=== PATIENT | female | born 1990 | race Caucasian/White ===

== ENCOUNTER 2019-12-12 16:48 | Emergency (ER) | payer MEDICAID, SELFPAY ==
[2019-12-12 16:55] VITALS: BP 121/62; PULSE 66; RESP 16; TEMP 36.4; O2SAT 100
--- NOTE | 2019-12-12 17:34 | ED.GENADUL_ITS ---
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 Please return to the ER following completion of the exam. Return to the ER for any acute concerns in the interim or if you develop vaginal bleeding greater than 2 pads per hour, fever, abdominal pain. Medical Decision Making 29-year-old female presents with vaginal bleeding 2 weeks following most recent menses. She is actively attempting to conceive. She called her doctor's office and was referred to the ED for an urgent evaluation. She is not had significant lower abdominal pain, no fever. She arrives with a temp of 36.4, pulse 66, blood pressure 121/62. CBC, basic chemistries, blood type obtained in addition to qualitative serum hCG. The hCG is negative, chemistries unremarkable, CBC shows white count 6.9, hematocrit 39, platelets 249. She states that her primary care physician's office requested that a vaginal ultrasound be performed to exclude ruptured cyst. I feel this is likely not clinically evident, but would consider pelvic mass within a differential diagnosis and I do feel a follow-up ultrasound is reasonable. As it is after hours, I will order an ultrasound for tomorrow and she will return to the ED for results. She understands return precautions in the interim. HPI General Mode of arrival: ambulatory . Date/Time Provider Initiated Documentation: 12/12/19 16:49 . Limitations to Documentation: no limitations . Information obtained by: patient . History of Present Illness 29 year old F presents to the emergency department with the chief complaint of Midcycle vaginal bleeding, described as moderate, and is localized to the pelvis. Patient started experiencing this day(s) (2 days) and it has been intermittent. No relieving factors improve symptom(s), No exacerbating factors reported . Patient notes denies fever/chills, loss of appetite, nausea/vomiting and shortness of breath. 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 Denies significant abdominal pain. Last menstrual period was 2 weeks ago. Vaginal bleeding last night and this morning. 6 systems reviewed and otherwise negative [facility] Social History Smoking/Tobacco Use Status: Never Drug use: Daily Substance use type: marijuana Exam Narrative Exam Narrative: GEN: awake, alert, oriented 3. Pleasant, well groomed, interactive. HEAD: Normocephalic, atraumatic ENT: Mucous membranes moist, oropharynx unremarkable, External ear exam unremarkable EYES: PERRL, EOMI NECK: Full ROM, no KENNETH, no menigismus CHEST/RESP: Nontender, clear to auscultation bilateral, no wheeze/rhonchi/rales CARDIOVASCULAR: RRR, no murmur, rub carlos a. 2+ Rad pulse bilateral ABDOMEN: Soft, nontender, no mass. +Bowel sounds Vaginal: Normal external exam, blood present in the posterior vaginal vault. No cervical motion tenderness, osseous fingertip, no adnexal tenderness or mass. EXT: Full ROM, no edema, no rash Neuro: Grossly normal neurologic exam, conversant, interactive. Psych: Speech fluent, thoughts congruent, affect normal Course Vital Signs Vital signs: Vital Signs Temperature 36.4 C L 12/12/19 16:55 Pulse 66 12/12/19 16:55 Respiratory Rate 16 12/12/19 16:55 Blood Pressure 121/62 12/12/19 16:55 Pulse Oximetry 100 12/12/19 16:55 Temperature 36.4 C L 12/12/19 16:55 Temperature Source Skin 12/12/19 16:55 Pulse 66 12/12/19 16:55 Respiratory Rate 16 12/12/19 16:55 Respiratory Effort 12/12/19 16:55 Blood Pressure 121/62 12/12/19 16:55 Blood Pressure Position Sitting 12/12/19 16:55 Pulse Oximetry 100 12/12/19 16:55 Oxygen Delivery Method Room Air 12/12/19 16:55 Oxygen Flow Rate 0 12/12/19 16:55 Pain Level 1 12/12/19 16:55
[2019-12-12 17:49] LABS: Abs Immature Grans 0.01 k/cumm (0.0-0.09); Absolute Basophil Count 0.04 k/cumm (0.0-0.2); Absolute Eosinophil Count 0.07 k/cumm (0.0-0.7); Absolute Lymphocyte Count 1.99 k/cumm (1.2-3.4); Absolute Monocyte Count 0.52 k/cumm (0.11-0.7); Absolute Neutrophil Count 4.27 k/cumm (1.2-6.7); Basophils % 0.6; HCT 39.2 % (36.0-46.0); HGB 12.9 g/dL (12.0-15.5); Immature Grans % 0.1 %; Lymphocytes % 28.8; Mean Corp. HGB Concentration 32.9 g/dL (32.0-36.0); Mean Corpuscular Hemoglobin 27.6 pg (27.0-33.0); Mean Corpuscular Volume 83.8 fL (80-95); Mean Platelet Volume 10.2 fL (8.0-11.0); Monocytes % 7.5; Platelet Count 249 x1000/uL (130-400); RBC 4.68 m/cumm (4.00-5.20)
[2019-12-12 17:59] LABS: Anion Gap 7.7 mmol/L (3-11); BUN 12 mg/dL (7-18); CO2 28.3 mmol/L (21.0-32.0); CREATININE 0.64 mg/dL (0.55-1.02); Calcium 8.7 mg/dL (8.5-10.1); Chloride 105 mmol/L (98-107); Glucose 83 mg/dL (74-106); Potassium 3.6 mmol/L (3.5-5.1); Sodium 141 mmol/L (136-145)
[2019-12-12 18:03] LABS: HCG Qual (Serum) Negative
[2019-12-12 18:27] VITALS: BP 119/63; PULSE 55; TEMP 36.6; O2SAT 100
== END 2019-12-12 18:30 | disposition home or self-care (01) ==
PROVIDERS: Emergency Provider Emergency Medicine; PCP Nurse Practitioner Family
DX: N93.9 Abnormal uterine and vaginal bleeding, unspecified (principal)
CPT/HCPCS: 36415; 80048; 86900; 86901; 99283; 84703; 85025

== ENCOUNTER 2019-12-13 09:06 | Outpatient (CLI) | payer MEDICAID, SELFPAY ==
--- NOTE | 2019-12-13 11:12 | DI.US_ITS ---
EXAM: US PELVIS TRANSVAGINAL CLINICAL HISTORY: VAGINAL BLEEDING. TECHNIQUE: Ultrasound of the pelvic, both abdominal and transvaginal was performed using standard pr otocol. COMPARISON: No exams were available for comparison FINDINGS: KIDNEYS: Kidneys are symmetric in size. No evidence of renal calculi. No evidence of hydronephrosis. No renal mass or cyst identified. UTERUS: Position: Anteverted. Size: 8.9 x 4.9 x 5.0 cm Endometrium: 0.2 cm. Normal for patient's menstrual status. Myometrium: 4.2 x 3.1 x 4.0 centimeter hypoechoic mass in the posterior body consistent with a fibroi d. Cervix: Unremarkable. OVARIES: Right: 4.3 x 2.5 x 2.4 cm Cyst or mass: Follicular cysts. The largest measures 2.8 centimeters. Left: 3.0 x 1.9 x 2.7 cm Cyst or mass: Small follicular cysts. DOPPLER: Color: Symmetric and uniform flow to both ovaries. No hyperemia. Duplex: Normal ovarian arterial waveforms visualized. CUL-DE-SAC: Free fluid: None. IMPRESSION: 1. Normal sonographic appearance of the kidneys. 2. Uterine fibroid. 3. Unremarkable bilateral ovaries. 4. Findings were discussed with the emergency department on the date of the examination.
== END 2019-12-13 09:26 ==
PROVIDERS: PCP Nurse Practitioner Family; Visit Provider Emergency Medicine
DX: N93.9 Abnormal uterine and vaginal bleeding, unspecified (principal); D25.9 Leiomyoma of uterus, unspecified; N83.01 Follicular cyst of right ovary; N83.02 Follicular cyst of left ovary
CPT/HCPCS: 76830; 76856

== ENCOUNTER 2019-12-13 11:49 | Emergency (ER) | payer MEDICAID, SELFPAY ==
[2019-12-13 11:53] VITALS: BP 112/68; PULSE 73; RESP 18; TEMP 36.6; O2SAT 99
--- NOTE | 2019-12-13 12:49 | ED.GENADUL_ITS ---
Discharge Plan Disposition Patient Disposition: HOME Condition: Stable Discharge Details Chief Complaint: Recheck Clinical Impression: Fibroid, uterine, Follicular cyst of ovary Primary Care Provider: Pedro Long ED Provider: Asia Babcock Home Meds and New Rx's Prescriptions: No Action No Known Home Meds RF: 0 Discharge Instructions Instructions: Ovarian Cyst (ED) Additional Instructions: Follow-up with [facility] specialist as discussed. They will call you to arrange an appointment. Motrin or Tylenol for aches if needed. Drink plenty of fluids. Eat well-balanced diet. For any alarming symptoms, increase in bleeding, increase in pain or worsening symptoms have immediate reevaluation in the emergency room. Referrals: Cecil Leung MD [MD [facility] STAFF PHYSICIAN] - Medical Decision Making Is a 29-year-old patient presenting to the emergency room to obtain her ultrasound results which was performed this morning as an outpatient after having an ER evaluation yesterday when ultrasound was unavailable. Patient reports mild decrease in vaginal bleeding today. No significant abdominal pain or change in presentation compared to yesterday. Patient denies lightheadedness or weakness. Patient does report she is been trying to conceive for the last 3 years with difficulty. Patient does not have a dedicated [facility] doctor but has been followed with her PCP. Patient had a typical menstrual cycle a few weeks ago then had onset of vaginal bleeding in the last 2 days which was atypical of her normal cycle. After speaking with her PCP they wanted her evaluated in the ER. Patient had a pelvic examination last evening as well as labs and testing which was negative. Spoke with radiologist who reviewed patient's ultrasound this morning. Ultrasound reveals normal sonographic appearance of the kidneys. Uterine fibroid which is measured approximately 4 x 4 cm. Unremarkable bilateral ovaries with small follicular cyst present with normal blood flow. These findings were discussed with the patient. Spoke with Dr. Leung of [facility] regarding outpatient follow-up and patient's findings. His office will contact the patient to arrange for follow-up in the office. The patient was stable and requested discharge. Prior to discharge, my usual and customary return precautions were reviewed with the patient - this included follow-up instructions and reasons to return to the Emergency Department if conditions worsens, does not improve as expected, or other new concerns arise. HPI General Date/Time Provider Initiated Documentation: 12/13/19 12:01 . HPI Narrative: Nerissa rios is a 29-year-old patient returning to the ER for results of an ultrasound which was performed as an outpatient today after having an initial evaluation in the emergency room yesterday. Patient was being evaluated for complaints of vaginal bleeding which was mid cycle, noted bleeding x2 days. Patient reports mild lower abdominal cramping. Patient had spoken with her PCP regarding abnormal vaginal bleeding for which she was recommended to come to the emergency room and have an ultrasound. Ultrasound was unavailable last evening. She did have labs including testing which was negative. Patient reports she has been trying to conceive for the last 3 years but has been having difficulty. Patient did have pelvic examination performed yesterday in the ER. Patient has no new concerns or complaints. Reports mild decrease in amount of vaginal bleeding she is experienced. Denies any significant cramping or back pain at this time. Denies any fever or chills. No weakness, lightheadedness or dizziness. Related Data Home Medications Medication Instructions Recorded Confirmed Unknown [No Known Home Meds] 12/12/19 12/13/19 Allergies Allergy/AdvReac Type Severity Reaction Status Date / Time No Known Allergies Allergy Unverified 12/13/19 11:57 General Stated Complaint: Recheck FRANCISCA: 4 Review of Systems All systems reviewed & are unremarkable except as noted in HPI and below Constitutional Constitutional: Denies chills, Denies fatigue, Denies fever(s), Denies headache(s) and Denies malaise ENT Ears, Nose, Mouth, and Throat: Denies dizziness and Denies headache(s) Gastrointestinal Gastrointestinal: Denies abdominal pain, Reports cramping, Denies nausea and Denies vomiting Genitourinary Genitourinary: Reports abnormal vaginal bleeding, Denies vaginal discharge and Denies vaginal pruritus Neurologic Neurologic: Denies dizziness and Denies headache(s) Endocrine Endocrine: Denies fatigue [facility] Social History Smoking/Tobacco Use Status: Never Alcohol Intake: current Alcohol Intake frequency: holidays/special occasions only Drug use: Daily Substance use type: marijuana Do you feel safe at home: Yes Do you feel safe in your relationship?: Yes Exam Narrative Exam Narrative: CONST: Healthy appearing patient, in no acute distress. Well hydrated. Alert and oriented. NECK: Normal visual inspection. FROM. Trachea midline. No Midline tenderness. CHEST: Normal insepection of the chest. RESP: Normal respiratory effort. Speaking full sentences. No cough. No audible wheezing. No retractions. CARDIO: No JVD. No murmur, regular rate and rhythm. MUSCULOSKELETAL: Normal Gait. FROM of all extremities. GI: Abdomen is soft, nontender. No peritoneal signs, rebound or guarding Back: No CVA tenderness bilaterally SKIN: Normal. Dry. No rashes. NEURO: Alert and awake. Speech clear. PSYCH: Normal affect. Cooperative. Course Vital Signs Vital signs: Vital Signs Temperature 36.6 C 12/13/19 11:53 Pulse 73 12/13/19 11:53 Respiratory Rate 18 12/13/19 11:53 Blood Pressure 112/68 12/13/19 11:53 Pulse Oximetry 99 12/13/19 11:53 Temperature 36.6 C 12/13/19 11:53 Temperature Source Skin 12/13/19 11:53 Pulse 73 12/13/19 11:53 Respiratory Rate 18 12/13/19 11:53 Respiratory Effort Non-Labored 12/13/19 11:55 Blood Pressure 112/68 12/13/19 11:53 Blood Pressure Position Sitting 12/13/19 11:53 Pulse Oximetry 99 12/13/19 11:53 Oxygen Delivery Method Room Air 12/13/19 11:53 Oxygen Flow Rate 0 12/13/19 11:53 Pain Level 0 12/13/19 11:53
== END 2019-12-13 12:55 | disposition home or self-care (01) ==
PROVIDERS: Emergency Provider Physician Assistant; PCP Nurse Practitioner Family
DX: D25.9 Leiomyoma of uterus, unspecified (principal); N83.01 Follicular cyst of right ovary; N83.02 Follicular cyst of left ovary; Z71.2 Person consulting for explanation of examination or test findings
CPT/HCPCS: 99281

== ENCOUNTER 2020-01-12 09:28 | Outpatient (CLI) | payer MEDICAID, SELFPAY ==
[2020-01-12 11:59] LABS: TSH (W/Ref FT4) 1.94 uIU/mL (0.36-3.74)
[2020-01-15 10:17] LABS: FSH 7.3 mIU/mL (See Note)
[2020-01-15 17:10] LABS: Antimullerian Hormone 9.1 ng/mL (0.9-9.5)
[2020-01-16 12:42] LABS: Testosterone, Free 0.29 ng/dL (0.06-1.03); Testosterone, Total 29 ng/dL (8-60)
== END 2020-01-12 09:48 ==
PROVIDERS: PCP Nurse Practitioner Family; Visit Provider Obstetrics & Gynecology
DX: E28.9 Ovarian dysfunction, unspecified (principal)
CPT/HCPCS: 36415; 84402; 84403; 83001; 83520; 84443

== ENCOUNTER 2020-03-06 01:40 | Outpatient (CLI) | payer MEDICAID, SELFPAY ==
[2020-03-06 17:45] LABS: TSH 2.01 uIU/mL (0.36-3.74)
[2020-03-07 18:57] LABS: FSH 7.7 mIU/mL (See Note)
[2020-03-08 11:00] LABS: Rubella IgG Ab (UVM) Positive (See Note); Varicella IgG Antibody Positive (See Note)
[2020-03-08 12:56] LABS: Chlamydia Result Negative (Negative); GC Result Negative (Negative)
[2020-03-08 23:02] LABS: Antimullerian Hormone 6.2 ng/mL (0.9-9.5)
== END 2020-03-06 02:00 ==
PROVIDERS: PCP Nurse Practitioner Family; Visit Provider Obstetrics & Gynecology
DX: N92.0 Excessive and frequent menstruation with regular cycle (principal); N97.8 Female infertility of other origin; Z11.3 Encounter for screening for infections with a predominantly sexual mode of transmission; Z13.29 Encounter for screening for other suspected endocrine disorder
CPT/HCPCS: 36415; 86787; 86900; 86901; 87491; 87591; 83001; 83520; 84443; 86762

== ENCOUNTER 2020-08-17 09:58 | Emergency (ER) | payer MEDICAID, SELFPAY ==
[2020-08-17 10:01] VITALS: BP 123/77; PULSE 77; RESP 20; TEMP 36.4; O2SAT 99
--- NOTE | 2020-08-17 10:38 | W.ED.GENAD ---
Discharge Plan Disposition Patient Disposition: HOME Condition: Stable Discharge Details Clinical Impression: Lower abdominal pain Primary Care Provider: Pedro Long ED Provider: Vel Carvalho Home Meds and New Rx's Prescriptions: Continued multivitamin [Daily Multi-Vitamin] Tablet 1 tab PO DAILY RF: 0 clomiphene citrate 50 mg tablet 50 mg PO DAILY RF: 0 Discharge Instructions Instructions: Abdominal Pain (ED) Additional Instructions: Please follow-up with gynecology. Call on Wednesday to make an appointment. Rest at home today. Please contact your primary care physician to arrange follow-up. Return to the ER for any worsening or new concerning symptoms. Referrals: [facility] [Provider Group] Medical Decision Making 1044 --30-year-old female with history of small uterine fibroid, on hormonal therapy to augment fertility, here after episode of severe lower abdominal pain that started after episode of bearing down to urinate. Pain now resolved without treatment. Abdominal exam benign. Patient has had no vaginal bleeding or hematuria. We discussed potential etiology for pain and benefit of diagnostic imaging including CT versus ultrasound to assess for acute surgical pathology. We discussed potential utility of pelvic examination. Patient verbalized understanding of concerns and risk/benefit of additional diagnostics and she declines pelvic exam and imaging at this time given pain resolved. Plan to observe for return of pain. Will check UA and urine . 1135 --urinalysis reviewed and unremarkable. Urine negative. Patient was reassessed and notes continues to have resolution of pain. She does state she has had some minimal cramping that is typical for her. She continues to decline additional diagnostic work-up. The patient was stable and requested discharge. Disposition decision was made weighing the risks and benefits of hospitalization versus outpatient treatment, the risk for further decompensation, and the her wishes. Prior to discharge, my usual and customary return precautions were reviewed with her - this included follow-up instructions and reason to return to the emergency department if condition worsens, does not improve as expected, or other new concerns arise. HPI General Mode of arrival: ambulatory. Date/Time Provider Initiated Documentation: 08/17/20 10:12. Limitations to Documentation: no limitations. Information obtained by: patient. HPI Narrative: 30-year-old female here with chief complaint of abdominal pain. Patient notes that she has had recent ovulatory cramping over the past day. She states that she sometimes has difficulty urinating and has to bear down to urinate. Today she did experience this and after urination she developed more severe lower abdominal and pelvic discomfort described as a tearing sensation worse on the right lower abdomen but felt like it wrapped around to central abdomen. Pain was severe. No associated vaginal bleeding or hematuria. She has had normal bowel movements recently. Pain persisted for about an hour. Pain was worse in certain positions including lying on her right side and seemed to improve slightly lying on her left side. Patient notes when she arrived here in the emergency department pain significantly improved and is now almost completely resolved. She states she feels much better. Patient is sexually active. She is currently on a hormonal treatment to improve fertility. She states that she does have sharp pains with sexual activity at times. No recent rough intercourse. Related Data Home Medications Medication Instructions Recorded Confirmed multivitamin 1 tab PO DAILY 12/21/19 08/17/20 clomiphene citrate 50 mg PO DAILY 08/17/20 08/17/20 Allergies Allergy/AdvReac Type Severity Reaction Status Date / Time No Known Allergies Allergy Unverified 08/17/20 10:05 General Stated Complaint: Abd Prob FRANCISCA: 3 Review of Systems All systems reviewed & are unremarkable except as noted in HPI and below Constitutional Constitutional: Denies fever(s) Gastrointestinal Gastrointestinal: Reports as per HPI and Reports nausea (Secondary to pain) Genitourinary Genitourinary: Reports as per HPI, Denies abnormal vaginal bleeding, Denies hematuria, Reports difficulty voiding, Denies genital lesions, Denies dysuria and Denies urinary urgency PFS Social History Smoking/Tobacco Use Status: Former Tobacco Use Alcohol Intake: current Alcohol Intake frequency: holidays/special occasions only Drug use: Occasionally Substance use type: marijuana Do you feel safe at home: Yes Do you feel safe in your relationship?: Yes Exam Const General: cooperative and no acute distress HENMT Mouth: moist mucous membranes Eyes Conjunctivae: normal conjunctivae Sclera: normal sclerae Neck Neck: trachea midline and supple Resp Auscultation: clear to auscultation bilaterally, no rales, no rhonchi and no wheezes Cardio Rate: regular rate and not tachycardic Rhythm: regular rhythm GI Palpation: soft, not firm, no guarding, no masses, not rigid and nontender Skin General skin exam: no rashes or lesions noted Neuro General: patient alert, patient awake and tone normal Extrem General: no edema Psych Appearance: grossly normal Mental Status: mental status grossly normal Course Vital Signs Vital signs: Vital Signs Temperature 36.4 C L 08/17/20 10:01 Pulse 77 08/17/20 10:01 Respiratory Rate 20 08/17/20 10:01 Blood Pressure 123/77 08/17/20 10:01 Pulse Oximetry 99 08/17/20 10:01 Temperature 36.4 C L 08/17/20 10:01 Temperature Source Skin 08/17/20 10:01 Pulse 77 08/17/20 10:01 Respiratory Rate 20 08/17/20 10:01 Respiratory Effort Non-Labored 08/17/20 10:06 Blood Pressure 123/77 08/17/20 10:01 Blood Pressure Position Sitting 08/17/20 10:01 Pulse Oximetry 99 08/17/20 10:01 Oxygen Delivery Method Room Air 08/17/20 10:01 Oxygen Flow Rate 0 08/17/20 10:01 Pain Level 5 08/17/20 10:01
[2020-08-17 11:03] LABS: Bilirubin Negative (Negative); Blood Negative (Negative); Clarity Clear (Clear); Glucose Negative (Negative); Ketones Negative (Negative); Leukocyte Esterase Negative (Negative); Nitrite Negative (Negative); Urobilinogen 0.2 EU/dL (Up TO 0.2); pH 7.5 (5-8)
[2020-08-17 11:37] VITALS: BP 105/60; PULSE 58; RESP 18; TEMP 36.7; O2SAT 98
== END 2020-08-17 11:40 | disposition home or self-care (01) ==
PROVIDERS: Emergency Provider Student in an Organized Health Care Education/Training Program; PCP Nurse Practitioner Family
DX: R10.2 Pelvic and perineal pain (principal)
CPT/HCPCS: 36415; 81025; 99283; 81003

== ENCOUNTER 2021-11-22 10:47 | Emergency (ER) | payer MEDICAID, SELFPAY ==
[2021-11-22 10:49] VITALS: BP 131/71; PULSE 80; RESP 18; TEMP 36.7; O2SAT 99
--- NOTE | 2021-11-22 11:15 | DI.CT_ITS ---
Exam(s) CT ABDOMEN PELVIS W EXAM: CT ABDOMEN PELVIS W INDICATION: RUQ abd pain. COMPARISON: No exams were available for comparison TECHNIQUE: FINDINGS: CT examination of the abdomen and pelvis was performed with a bolus infusion of 100 cc of Omnipaque 3 50. Images obtained through the lung bases are unremarkable. The liver is mildly enlarged. No focal hepatic lesion identified.. The gallbladder contains stones and is dilated. There is probable gallbladder sludge as well. Quest ion mild pericholecystic fluid collection. Common hepatic duct is dilated at 12 millimeters, the distal common bile duct is dilated to a point j ust above the duodenum, obstructive process would have to be considered. There is slight intrahepati c biliary dilatation. Correlation with MRCP recommended.. Pancreas appears normal. Spleen is unremarkable in appearance. Adrenals appear normal. The kidneys are unremarkable with no evidence of hydronephrosis, nephrolithiasis, or renal mass.. Ur inary bladder unremarkable. Abdominal aorta is of normal diameter and no major vascular abnormality is seen. No abdominal wall hernia. No abdominal or pelvic adenopathy. There is uterine mass consistent with a 6 cm fundal fibroid. There is 2.7 cm in diameter left ovaria n presumed cyst or dominant follicle. No free fluid in the cul-de-sac.. Appendix is normal. No evidence of diverticulitis or bowel obstruction. IMPRESSION: Extrahepatic and intrahepatic biliary dilatation with question distal common duct obstruction. Addit ional evaluation with MRCP recommended. Cholelithiasis and question small quantity of free pericholecystic fluid. RADIATION DOSE DELIVERED: 715.84mGy.cm Total DLP 715.84mGy.cm Total DLP CTDIvol RADIATION OPTIMIZATION: All CT scans at this facility use at least one of these dose optimization te chniques: automated exposure control; mA and/or kV adjustment per patient size (includes targeted exa ms where dose is matched to clinical indication); or iterative reconstruction.
--- NOTE | 2021-11-22 11:24 | ED.GENADUL_ITS ---
Discharge Plan Disposition Patient Disposition: HOME Condition: Stable Discharge Details Clinical Impression: Cholelithiases, Abdominal pain Primary Care Provider: Pedro Long ED Provider: Mi aVnn Home Meds and New Rx's Prescriptions: No Action multivitamin [Daily Multi-Vitamin] Tablet 1 tab PO DAILY RF: 0 Discharge Instructions Instructions: Gallstones (ED), Abdominal Pain (ED) Additional Instructions: Please return tomorrow to the ER to have your blood work drawn. If continued vomiting, fever, worsening abdominal pain please return sooner. Follow a brat (Bananas, Rice, Apples, D'Hanis) diet nothing fried spicy fatty stay away from pork or dairy. Please follow-up with Dr. Vargas as directed. Stand Alone Forms: Work Release Referrals: Pedro Long [Primary Care Provider] - 1 week Ama Vargas DO [OSTEOPATHIC DOCTOR] - 1 week Discharge Data Discharge Date/Time-TO BE ENTERED AT DEPARTURE: 11/22/21 16:07 Medical Decision Making 31-year-old female presents to the ER with chief complaint of midepigastric abdominal pain which began on November 13. Approximately 8 days ago. Patient reports that pain gets worse after eating, she then reports vomiting. This is occurred twice. Most recent episode was yesterday. She is able to hold down s ome foods banana and some water and tea. She reports increased heartburn after the episodes. She denies any diarrhea or problems having bowel movements. Denies any fever chills or any other associated symptoms. She has no past medical history of abdominal surgeries. CBC shows white blood cell count of 3.84, potassium 3.3 sodium 138, liver enzymes are elevated AST 125, ALT 466, alk phos 154, urinalysis shows large blood trace leukocytes 10-20 RBCs squamous contamination of the urinalysis. CT abdomen pelvis with contrast: FINDINGS: Liver: 18.8 cm longitudinal dimension of the liver, consistent with hepatomegaly. Focal fatty infiltration of the liver is seen adjacent to the falciform ligament. Otherwise unremarkable liver. Gallbladder and bile ducts: The gallbladder is moderately distended and contains dependent calcified gallstones as well as moderately hyperattenuating material in the dependent aspect of the gallbladder which may represent sludge. There is suggestion of mild edematous thickening of the gallbladder wall. Mild central prominence of the intrahepatic bile ducts. Dilated common bile duct, measuring up to 11 mm in diameter. Pancreas: Normal. No ductal dilation. Spleen: Normal. No splenomegaly. Adrenal glands: Normal. No mass. Kidneys and ureters: Normal. No hydronephrosis. Stomach and bowel: Unremarkable. No obstruction. No mucosal thickening. Appendix: No evidence of appendicitis. Intraperitoneal space: Unremarkable. No free air. No significant fluid collection. Vasculature: Unremarkable. No abdominal aortic aneurysm. Lymph nodes: Unremarkable. No enlarged lymph nodes. Urinary bladder: Unremarkable as visualized. Reproductive: Enlarged fibroid uterus with a 4.9 x 6.1 cm intramural/subserosal fibroid in the posterior uterine body. Dominant follicle in the left ovary measuring 2.7 cm. Bones/joints: Unremarkable. No acute fracture. Soft tissues: Unremarkable. IMPRESSION: 1. Cholelithiasis, with findings raising the possibility of acute cholecystitis. Correlate with laboratory data. 2. Dilated common bile duct, measuring up to 11 mm in diameter. Correlate with LFTs. If indicated, consider ERCP or MRCP for further evaluation. 3. Hepatomegaly. Correlate with LFTs. 4. Enlarged fibroid uterus. 1241: Spoke with radiologist at [facility] who states that there is possibility of acute Cholecystitis and a dilated common bile duct measuring up to 11 mm and re commend the ERCP or MRCP for further evaluation. 1410: [facility] [place] [place] transfer center called to speak with GI regarding case, they are at bed capacity and not available for transfer at this time. Spoke with Dr. Vargas who agrees to come and evaluate patient here in the department. 1451: Spoke with GI at [facility] [place] [place] Dr. Wayne regarding patient case and details, she does not necessarily recommend an emergent MRCP at this time. She does recommend surgical consult for possible acute cholecystitis she states that they will be willing to be involved if needed for ERCP at a later time. 1525: Dr. Vargas here at bedside for patient reevaluation she recommends patient return to the ER tomorrow to have labs drawn. She would like to see a CBC, CMP and a lipase. Will discuss plan with patient instructed to return tomorrow to the ER to have labs drawn. HPI General Mode of arrival: ambulatory . Date/Time Provider Initiated Documentation: 11/22/21 11:14 . Limitations to Documentation: no limitations . Information obtained by: patient, RN notes reviewed and old records reviewed . HPI Narrative: 31-year-old female presents to the ER with chief complaint of midepigastric abdominal pain which began on November 13. Approximately 8 days ago. Patient reports that pain gets worse after eating, she then reports vomiting. This is occurred twice. Most recent episode was yesterday. She is able to hold down some foods banana and some water and tea. She reports increased heartburn after the episodes. She denies any diarrhea or problems having bowel movements. Denies any fever chills or any other associated symptoms. She has no past medical history of abdominal surgeries. Related Data Home Medications Medication Instructions Recorded Confirmed multivitamin 1 tab PO DAILY 12/21/19 11/22/21 Allergies Allergy/AdvReac Type Severity Reaction Status Date / Time No Known Allergies Allergy Unverified 11/22/21 10:54 General Stated Complaint: Nausea/Vomit/Diar FRANCISCA: 3 Review of Systems All systems reviewed & are unremarkable except as noted in HPI and below Gastrointestinal Gastrointestinal: Reports abdominal pain, Reports early satiety, Reports dyspepsia, Reports heartburn, Denies diarrhea, Reports nausea and Reports vomiting PFSH All Active Problems Choledocholithiasis with acute cholecystitis (Acute) Cholelithiases (Acute) Abdominal pain (Acute) Amenorrhea (Acute) Intramural uterine fibroid (Acute) Infertility (Acute) Irregular menses (Acute) Social History Smoking/Tobacco Use Status: Former Tobacco Use Smoking risk assessment performed?: Yes Alcohol Intake: current Alcohol Intake frequency: holidays/special occasions only Drug use: Occasionally Substance use type: marijuana Household members: spouse, children and other Details: H-Ralph, 2 children Current gender identity: female Do you feel safe at home: Yes Do you feel safe in your relationship?: Yes Exam Narrative Exam Narrative: Constitutional: Alert and oriented x3. Appears stated age. Normal body habitus. Head: Normocephalic, no trauma. Eyes: Pupils PERRL, Red reflex noted, EOM's intact. Eyelids symmetrical without lesions, discharge, or swelling. ENT: Bilateral TM's WNL, External ear normal to inspection, no mastoid TTP, swelling, or erythema, Nasal turbinates WNL, no nasal discharge. Normal dentition, Posterior pharynx WNL, no exudate. Chest: RRR, Normal S1, S2, distal pulses intact. Resp: Lungs clear to auscultation bilaterally, no wheezes, rales, or rhonchi. Abdomen: Soft, non-distended, Normoactive bowel sounds all 4 quads. Tenderness to right upper quadrant. Musculoskeletal: Normal gait, 5/5 strength to all four extremities. Skin: No suspicious rashes or lesions. Capillary refill less than 2 sec. Neurologic: Cranial nerves II-XII intact. Alert and oriented x 3. Motor: No deficits noted. Sensory: Intact bilaterally all 4 extremities. Reflexes: DTR's intact bilaterally.. Hematologic/Lymphatic: No ecchymosis, no lymphadenopathy. Course Vital Signs Vital signs: Vital Signs Temperature 36.7 C 11/22/21 10:49 Pulse 80 11/22/21 10:49 Respiratory Rate 18 11/22/21 10:49 Blood Pressure 131/71 11/22/21 10:49 Pulse Oximetry 99 11/22/21 10:49 Temperature 36.7 C 11/22/21 10:49 Temperature Source Temporal Artery Scan 11/22/21 10:49 Pulse 80 11/22/21 10:49 Respiratory Rate 18 11/22/21 10:49 Respiratory Effort Non-Labored 11/22/21 10:55 Blood Pressure 131/71 11/22/21 10:49 Pulse Oximetry 99 11/22/21 10:49 Oxygen Delivery Method Room Air 11/22/21 10:49 Oxygen Flow Rate 0 11/22/21 10:49 Pain Level 0 11/22/21 10:49 Lab/Test Results Lab/Test Results: POC- Test(urine) Negative
[2021-11-22 11:36] LABS: Abs Immature Grans 0.01 10^3/uL (0.0-0.06); Absolute Basophil Count 0.05 10^3/uL (0.0-0.2); Absolute Eosinophil Count 0.05 10^3/uL (0.0-0.7); Absolute Monocyte Count 0.33 10^3/uL (0.1-0.8); Basophils % 1.3; Eosinophils % 1.3; HCT 39.7 % (36.0-46.0); HGB 12.8 g/dL (11.2-15.7); Immature Grans % 0.3; Lymphocytes % 33.9; MCH 27.5 pg (27.0-33.0); MCHC 32.2 % (32.0-36.0); MCV 85.4 fL (80-95); MPV 10.3 fL (8.0-11.0); Monocytes % 8.6; Neutrophils % 54.6; Nucleated RBC 0 %; Platelet Count 229 10^3/uL (130-400); RBC 4.65 10^6/uL (3.93-5.22); RDW 12.4 % (11.7-14.6); RDW-SD 38.5 fL; WBC 3.84 10^3/uL (4.4-10.8)
[2021-11-22] MEDS: Normal Saline 1,000 ML 1000 ML IV (11:39)
[2021-11-22 11:46] LABS: Bilirubin Negative (Negative); Blood Large (Negative); Clarity Sl Cloudy (Clear); Glucose Negative (Negative); Ketones 15 mg/dL (Negative); Leukocyte Esterase Trace (Negative); Nitrite Negative (Negative); Specific Gravity 1.015 (1.005-1.025); pH >= 9.0 (5-8)
[2021-11-22 11:49] LABS: ALT 466 U/L (14-59); AST 125 U/L (15-37); Albumin 3.9 g/dL (3.4-5.0); Alkaline Phosphatase 154 U/L (46-116); Anion Gap 6.5 mmol/L (3-11); BUN 8 mg/dL (7-18); Bilirubin, Total 0.7 mg/dL (0.2-1.0); CO2 30.5 mmol/L (21.0-32.0); CREATININE 0.7 mg/dL (0.55-1.02); Calcium 8.8 mg/dL (8.5-10.1); Chloride 101 mmol/L (98-107); Glucose 91 mg/dL (74-106); Lipase 46 U/L (73-393); Magnesium 2.1 mg/dL (1.8-2.4); Potassium 3.3 mmol/L (3.5-5.1); Sodium 138 mmol/L (136-145); Total Protein 6.9 g/dL (6.4-8.2)
[2021-11-22 11:58] LABS: Bacteria Moderate HPF (Negative); C & S Indicated? No/Sq. Contamination; Casts Negative LPF (Negative); Crystals Negative HPF (Negative); Epithelial Cells Many HPF (Negative); Mucus Trace (Negative)
[2021-11-22] MEDS: Omnipaque 350 MG/ML 100 ML BTL IV (12:07)
--- NOTE | 2021-11-22 12:40 | DI.VRAD_ITS ---
Addendum created by Akila Irvin MD on 11/22/2021 1:23:22 PM EST: THIS REPORT CONTAINS FINDINGS THAT MAY BE CRITICAL TO PATIENT CARE. The findings were verbally communicated by me to MERARY SAINI via telephone conference at 1:23 PM EST on 11/22/2021. The findings were acknowledged and understood. Initial report created on 11/22/2021 12:39:33 PM EST: PROCEDURE INFORMATION: Exam: CT Abdomen And Pelvis With Contrast Exam date and time: 11/22/2021 11:28 AM Age: 31 years old Clinical indication: Other: Ruq abd pain TECHNIQUE: Imaging protocol: Computed tomography of the abdomen and pelvis with contrast. Radiation optimization: All CT scans at this facility use at least one of these dose optimization techniques: automated exposure control; mA and/or kV adjustment per patient size (includes targeted exams where dose is matched to clinical indication); or iterative reconstruction. Contrast material: OMNIPAUE 350; Contrast volume: 100 ml; Contrast route: INTRAVENOUS (IV); COMPARISON: US PELVIS TRANSVAGINAL 12/13/2019 11:12 AM FINDINGS: Liver: 18.8 cm longitudinal dimension of the liver, consistent with hepatomegaly. Focal fatty infiltration of the liver is seen adjacent to the falciform ligament. Otherwise unremarkable liver. Gallbladder and bile ducts: The gallbladder is moderately distended and contains dependent calcified gallstones as well as moderately hyperattenuating material in the dependent aspect of the gallbladder which may represent sludge. There is suggestion of mild edematous thickening of the gallbladder wall. Mild central prominence of the intrahepatic bile ducts. Dilated common bile duct, measuring up to 11 mm in diameter. Pancreas: Normal. No ductal dilation. Spleen: Normal. No splenomegaly. Adrenal glands: Normal. No mass. Kidneys and ureters: Normal. No hydronephrosis. Stomach and bowel: Unremarkable. No obstruction. No mucosal thickening. Appendix: No evidence of appendicitis. Intraperitoneal space: Unremarkable. No free air. No significant fluid collection. Vasculature: Unremarkable. No abdominal aortic aneurysm. Lymph nodes: Unremarkable. No enlarged lymph nodes. Urinary bladder: Unremarkable as visualized. Reproductive: Enlarged fibroid uterus with a 4.9 x 6.1 cm intramural/subserosal fibroid in the posterior uterine body. Dominant follicle in the left ovary measuring 2.7 cm. Bones/joints: Unremarkable. No acute fracture. Soft tissues: Unremarkable. IMPRESSION: 1. Cholelithiasis, with findings raising the possibility of acute cholecystitis. Correlate with laboratory data. 2. Dilated common bile duct, measuring up to 11 mm in diameter. Correlate with LFTs. If indicated, consider ERCP or MRCP for further evaluation. 3. Hepatomegaly. Correlate with LFTs. 4. Enlarged fibroid uterus. Dictated and Authenticated by: Akila Irvin MD. Ordering:JAYLEEN Stark MD
[2021-11-22 12:53] VITALS: BP 110/69; PULSE 69; RESP 18; O2SAT 100
[2021-11-22 13:49] LABS: Source Nasal/Nares
[2021-11-22 14:27] LABS: COVID-19 PCR Negative (Negative)
--- NOTE | 2021-11-22 16:07 | SCONE_ITS ---
Date of service: 11/22/21 Time of Service: 16:07 Assessment and Plan Assessment and plan (1) Cholelithiases: Status: Acute (2) Choledocholithiasis with acute cholecystitis: Status: Acute Assessment and plan: She currently has moderate pain and tenderness. Her nausea has resolved and she will he is feeling better with antiemetics and pain management. I did review her labs and CT scan. I do think she passed a gallstone. She does have a dilated common bile duct but her bilirubin is normal. She is very motivated to go home. Unfortunately we have no hospital beds currently. [facility] and [facility] are only taking critical patients. She has been able to keep fluids down. We did discuss the role of gallbladder indigestion and the development of gallstones in . Eventually she is going to require her gallbladder out. I am hoping that she has passed the stone and will not need a ERCP. She will be discharged home with pain meds and antiemetics per the ED. I will see her back in clinic tomorrow and we will recheck her labs and see how she is feeling clinically. We will also check our bed availability. Hopefully we can get her scheduled for an MRCP on Wednesday and then lap mann sometime in the next 7 to 10 days. We discussed that if she cannot keep fluids down, her pain progresses, she starts vomiting uncontrollably or running a temperature greater than 100.5 or notice her eyes turn yellow to return to the ER. I will see her back tomorrow in the office at 1 PM on November 23. 60 minutes spent with the patient today in consultation regarding acute cholecystitis/ lithiasis and choledocholithiasis. History of Present Illness Narrative: Patient presented to the ED today complaining of right upper quadrant/epigastric abdominal pain radiating to her back and nausea. This started on November 13. She had a mild attack and then felt better. She denies any traveling. She denies any diarrhea or any abnormalities of her bowels. She denies any dysuria. She does not think it was related to anything she ate. She has never had problems like this before. She has had one in the past. Her sister had her gallbladder out after . She has recently done fertility treatments. She is not currently on any hormonal control. The pain is currently in the epigastric and right upper quadrant area and radiates into her low back. She does not have any jaundice. And she is feeling better. Review of Systems All systems reviewed & are unremarkable except as noted in HPI and below PFSH All Active Problems Choledocholithiasis with acute cholecystitis (Acute) Cholelithiases (Acute) Abdominal pain (Acute) Amenorrhea (Acute) Intramural uterine fibroid (Acute) Infertility (Acute) Irregular menses (Acute) Social History Smoking/Tobacco Use Status: Former Tobacco Use Smoking risk assessment performed?: Yes Alcohol Intake: current Alcohol Intake frequency: holidays/special occasions only Drug use: Occasionally Substance use type: marijuana Household members: spouse, children and other Details: H-Ralph, 2 children Do you feel safe at home: Yes Do you feel safe in your relationship?: Yes Exam Const General: cooperative, healthy appearing, comfortable, no acute distress, well developed and well groomed Nutritional Appearance: average body habitus and well nourished Orientation: alert, awake and oriented x3 HENMT Head: normal to inspection, normocephalic and atraumatic Ears: hearing grossly normal bilaterally and external ears normal General nose exam: external nose normal Face and sinus: normal facial exam and sinuses nontender Mouth: oral mucosae normal, lip normal, tongue normal and moist mucous membranes Teeth and gingiva: dentition normal Eyes General: appearance normal, both eyes and all related structures Conjunctivae: conjunctivae normal Sclera: sclerae normal Pupils: PERRL Neck Neck: normal visual inspection and full ROM Chest Chest: normal inspection of the chest Resp Effort & Inspection: normal respiratory effort, able to speak in complete sentences, no cough, no nasal flaring, not tachypneic and no use of accessory muscles Auscultation: clear to auscultation bilaterally, no rales, no rhonchi and no wheezes Cardio Jugular venous pressure: no JVD Rate: regular rate Rhythm: regular rhythm GI Inspection: normal to inspection, no edema and non-distended Palpation: soft, no masses, tender in the epigastrum, in the RUQ and Mariscal's sign positive and No ascites Auscultation: normal bowel sounds Skin General skin exam: no rashes or lesions noted Trauma: no lacerations or abrasions Neuro General: patient alert, patient oriented x3, oriented, gait normal, moves all extremities, no focal motor deficits and CN's II-XI intact bilaterally Cognition: normal cognition Speech: speech normal Gait: normal gait Motor: muscle tone normal throughout Extrem General: normal to inspection, full ROM and no clubbing, cyanosis or edema Psych Appearance: grossly normal and well kempt Mental Status: mental status grossly normal Speech and Movement: speech and movement normal Affect: normal affect Results Last Vital Signs Temp 36.7 C 11/22/21 10:49 Pulse 69 11/22/21 12:53 Resp 18 11/22/21 12:53 BP 110/69 11/22/21 12:53 Pulse Ox 100 11/22/21 12:53 Labs Result diagrams: 11/22/21 10:30 11/22/21 10:30 Labs: Laboratory Results - last 24 hr 11/22/21 11/22/21 11/22/21 10:30 10:30 11:01 WBC 3.84 L RBC 4.65 Hgb 12.8 Hct 39.7 MCV 85.4 MCH 27.5 MCHC 32.2 RDW 12.4 Plt Count 229 MPV 10.3 Immature Gran % 0.3 Neutrophils % 54.6 Lymphocytes % 33.9 Monocytes % 8.6 Eosinophils % 1.3 Basophils % 1.3 Nucleated RBC % 0 Absolute Neutrophils 2.10 Absolute Lymphocytes 1.30 Absolute Monocytes 0.33 Absolute Eosinophils 0.05 Absolute Basophils 0.05 Sodium 138 Potassium 3.3 L Chloride 101 Carbon Dioxide 30.5 Anion Gap 6.5 BUN 8 Creatinine 0.7 Estimated GFR/1.73 m2 >= 60.00 Glucose 91 Calcium 8.8 Magnesium 2.1 Total Bilirubin 0.7 AST 125 H ALT 466 H Alkaline Phosphatase 154 H Total Protein 6.9 Albumin 3.9 Lipase 46 Urine Color Yellow Urine Clarity Sl Cloudy Urine pH >= 9.0 H Ur Specific [place] 1.015 Urine Protein Negative Urine Ketones 15 H Urine Blood Large H Urine Nitrite Negative Urine Bilirubin Negative Urine Urobilinogen 1.0 H Ur Leukocyte Esterase Trace H Urine RBC 10-20 H Urine WBC 3-5 Ur Epithelial Cells Many Urine Crystals Negative Urine Bacteria Moderate Urine Casts Negative Urine Mucus Trace Ur Culture Indicated? No/Sq. Contamination Urine Glucose Negative COVID-19 Source SARS-CoV-2 (PCR) 11/22/21 13:40 WBC RBC Hgb Hct MCV MCH MCHC RDW Plt Count MPV Immature Gran % Neutrophils % Lymphocytes % Monocytes % Eosinophils % Basophils % Nucleated RBC % Absolute Neutrophils Absolute Lymphocytes Absolute Monocytes Absolute Eosinophils Absolute Basophils Sodium Potassium Chloride Carbon Dioxide Anion Gap BUN Creatinine Estimated GFR/1.73 m2 Glucose Calcium Magnesium Total Bilirubin AST ALT Alkaline Phosphatase Total Protein Albumin Lipase Urine Color Urine Clarity Urine pH Ur Specific [place] Urine Protein Urine Ketones Urine Blood Urine Nitrite Urine Bilirubin Urine Urobilinogen Ur Leukocyte Esterase Urine RBC Urine WBC Ur Epithelial Cells Urine Crystals Urine Bacteria Urine Casts Urine Mucus Ur Culture Indicated? Urine Glucose COVID-19 Source Nasal/Nares SARS-CoV-2 (PCR) Negative
== END 2021-11-22 16:07 | disposition home or self-care (01) ==
PROVIDERS: Emergency Provider Registered Nurse Emergency; PCP Nurse Practitioner Family
DX: K80.20 Calculus of gallbladder without cholecystitis without obstruction (principal); R10.13 Epigastric pain; R11.10 Vomiting, unspecified
CPT/HCPCS: 36415; 80053; 81025; 83690; 87635; 96360; 99285; 74177; 81003; 81015; 83735; 85025; 99284; J3490

== ENCOUNTER 2021-11-23 10:26 | Outpatient (REF) | payer MEDICAID, SELFPAY ==
[2021-11-23 12:44] LABS: Abs Immature Grans 0.02 10^3/uL (0.0-0.06); Absolute Basophil Count 0.05 10^3/uL (0.0-0.2); Absolute Eosinophil Count 0.04 10^3/uL (0.0-0.7); Absolute Lymphocyte Count 1.26 10^3/uL (1.2-3.4); Absolute Monocyte Count 0.34 10^3/uL (0.1-0.8); Basophils % 1.2; HCT 40.7 % (36.0-46.0); HGB 12.8 g/dL (11.2-15.7); Immature Grans % 0.5; Lymphocytes % 29.9; MCH 27.3 pg (27.0-33.0); MCHC 31.4 % (32.0-36.0); MCV 86.8 fL (80-95); MPV 10.5 fL (8.0-11.0); Monocytes % 8.1; Neutrophils % 59.3; Nucleated RBC 0 %; Platelet Count 248 10^3/uL (130-400); RBC 4.69 10^6/uL (3.93-5.22); RDW 12.4 % (11.7-14.6); RDW-SD 39.5 fL; WBC 4.21 10^3/uL (4.4-10.8)
[2021-11-23 12:48] LABS: ALT 400 U/L (14-59); AST 91 U/L (15-37); Albumin 4.2 g/dL (3.4-5.0); Alkaline Phosphatase 160 U/L (46-116); BUN 6 mg/dL (7-18); Bilirubin, Total 1.3 mg/dL (0.2-1.0); CREATININE 0.8 mg/dL (0.55-1.02); Calcium 8.7 mg/dL (8.5-10.1); Chloride 102 mmol/L (98-107); Glucose 123 mg/dL (74-106); Potassium 3.5 mmol/L (3.5-5.1); Sodium 141 mmol/L (136-145); Total Protein 7.2 g/dL (6.4-8.2)
[2021-11-23 13:35] LABS: C-Reactive Protein 0.13 mg/dL (0.0-0.3); Lipase 59 U/L (73-393)
== END 2021-11-23 10:27 | disposition home or self-care (01) ==
LOC: LBO 10:26
PROVIDERS: PCP Nurse Practitioner Family; Visit Provider Surgery
DX: K80.20 Calculus of gallbladder without cholecystitis without obstruction (principal); K80.42 Calculus of bile duct with acute cholecystitis without obstruction
CPT/HCPCS: 36415; 80053; 83690; 85025; 86140

== ENCOUNTER 2021-11-24 02:54 | Outpatient (CLI) | payer MEDICAID, SELFPAY ==
[2021-11-24 14:28] LABS: ALT 295 U/L (14-59); AST 49 U/L (15-37); Alkaline Phosphatase 137 U/L (46-116); Anion Gap 6.4 mmol/L (3-11); BUN 4 mg/dL (7-18); Bilirubin, Total 0.6 mg/dL (0.2-1.0); CO2 29.6 mmol/L (21.0-32.0); CREATININE 0.7 mg/dL (0.55-1.02); Calcium 8.5 mg/dL (8.5-10.1); Chloride 105 mmol/L (98-107); Glucose 93 mg/dL (74-106); Lipase 49 U/L (73-393); Sodium 141 mmol/L (136-145); Total Protein 7.1 g/dL (6.4-8.2)
== END 2021-11-24 02:55 | disposition home or self-care (01) ==
LOC: LBO 02:54
PROVIDERS: PCP Nurse Practitioner Family; Visit Provider Surgery
DX: K80.20 Calculus of gallbladder without cholecystitis without obstruction (principal); K80.42 Calculus of bile duct with acute cholecystitis without obstruction
CPT/HCPCS: 36415; 80053; 83690

== ENCOUNTER 2021-11-28 01:06 | Outpatient (CLI) | payer MEDICAID, SELFPAY ==
--- NOTE | 2021-11-28 09:15 | DI.MRI_ITS ---
Exam(s) MR ABDOMEN WO EXAM: MR ABDOMEN WO CLINICAL HISTORY: dilated cbd on ct/passed gallstone,CHOLEDOCHOLITHIASIS,K80.20,K80.42 TECHNIQUE: Multiplanar multisequence MRA of the Abdomen was performed. CONTRAST MATERIAL: IV Contrast: No contrast was administered. COMPARISON: CT CT ABDOMEN PELVIS W from 11/22/2021 FINDINGS: Liver: The liver is enlarged measuring 18 cm long. There is no evidence of a hepatic mass. Pancreas: Unremarkable. No evidence of a pancreatic mass. Gallbladder and Bile Ducts: Stones are seen within the gallbladder. The common duct measures 6 mm. The duct measures 3 mm in the head of the pancreas. There is a question of a tiny round hypointensit y in the common duct in the head of the pancreas. (Series 4001, image 18). This may represent a sma ll ductal stone. Adrenals: Unremarkable. Kidneys: Unremarkable. Spleen: Unremarkable. Aorta: Unremarkable. No evidence of an aneurysm. Soft Tissues: Unremarkable. Bone: Unremarkable. Lymph Nodes: Unremarkable. IMPRESSION: 1. Question of a tiny round hypointensity in the common duct in the head of the pancreas which may re present a small ductal stone. 2. Cholelithiasis. No biliary ductal dilatation. 3. Mild hepatomegaly. DATA REPOSITORY:
== END 2021-11-28 01:26 ==
PROVIDERS: PCP Nurse Practitioner Family; Visit Provider Surgery
DX: K80.20 Calculus of gallbladder without cholecystitis without obstruction (principal); K80.42 Calculus of bile duct with acute cholecystitis without obstruction; R16.0 Hepatomegaly, not elsewhere classified
CPT/HCPCS: 74181

== ENCOUNTER 2022-02-10 02:28 | Outpatient (CLI) | payer MEDICAID, SELFPAY ==
[2022-02-10 10:21] LABS: HCG Qual (Urine) Negative
[2022-02-10 11:24] LABS: ALT 628 U/L (14-59); AST 413 U/L (15-37); Albumin 4.3 g/dL (3.4-5.0); Alkaline Phosphatase 154 U/L (46-116); Bilirubin, Direct 0.4 mg/dL (0.0-0.2); Bilirubin, Total 0.9 mg/dL (0.2-1.0)
[2022-02-10 12:06] LABS: Source Nasal/Nares
[2022-02-10 17:57] LABS: COVID-19 PCR Negative (Negative)
== END 2022-02-10 02:29 | disposition home or self-care (01) ==
PROVIDERS: PCP Nurse Practitioner Family; Visit Provider Student in an Organized Health Care Education/Training Program
DX: R10.9 Unspecified abdominal pain (principal); Z20.822 Contact with and (suspected) exposure to COVID-19; Z01.818 Encounter for other preprocedural examination; Z01.812 Encounter for preprocedural laboratory examination; Z32.00 Encounter for pregnancy test, result unknown
CPT/HCPCS: 36415; 80076; 87635; 81025

== ENCOUNTER 2022-02-13 21:11 | Outpatient (CLI) | payer MEDICAID, SELFPAY ==
[2022-02-13 15:05] LABS: ALT 558 U/L (14-59); AST 248 U/L (15-37); Albumin 3.9 g/dL (3.4-5.0); Alkaline Phosphatase 181 U/L (46-116); Bilirubin, Direct 2.4 mg/dL (0.0-0.2)
== END 2022-02-13 21:12 | disposition home or self-care (01) ==
LOC: LBO 21:13
PROVIDERS: PCP Nurse Practitioner Family; Visit Provider Student in an Organized Health Care Education/Training Program
DX: R10.9 Unspecified abdominal pain (principal)
CPT/HCPCS: 36415; 80076

== ENCOUNTER 2023-01-06 12:21 | Outpatient (REF) | payer MEDICAID, SELFPAY ==
--- NOTE | 2023-01-06 12:10 | PAPFT_PTH ---
PATIENT: Stacie Loving LOC: [facility] U#:[id number] AGE/SX: 32/F ROOM: RE01/06/[address]: Leti Tamayo : 1990 BED: DIS: 01/06/2023 SPEC #: [id number] RECD: 01/06/23 13:05 STATUS: NESHA RESole #: [id number] MER: 01/06/23 12:[address]: Leti Tamayo DEPT: [facility] Cytology RECD BY: Christa Olvera ENTERED: 01/06/23 13:06 SP TYPE: PAPFT OTHR DR: Pedro Long Tissues: 1 - CX/ENDOCX FOR PAP SMEARS Procedures: PAP THIN PREP/UVM Screening HPV DNA PROBE Comments: [id number]
[2023-01-07 13:13] LABS: Chlamydia Result Negative (Negative); GC Result Negative (Negative)
== END 2023-01-06 12:22 | disposition home or self-care (01) ==
LOC: LBN 12:21
PROVIDERS: PCP Nurse Practitioner Family; Visit Provider Obstetrics & Gynecology Gynecology
DX: Z11.3 Encounter for screening for infections with a predominantly sexual mode of transmission (principal); Z12.4 Encounter for screening for malignant neoplasm of cervix; Z11.51 Encounter for screening for human papillomavirus (HPV)
CPT/HCPCS: 87491; 87591; 88142; 87624

== ENCOUNTER 2023-01-19 01:51 | Outpatient (CLI) | payer MEDICAID, SELFPAY ==
--- NOTE | 2023-01-19 06:30 | DI.US_ITS ---
Exam(s) US PELVIS TRANSVAGINAL EXAM: US PELVIS TRANSVAGINAL CLINICAL HISTORY: hx of uterine fibroid,f/u,D25.1 TECHNIQUE: Ultrasound of the pelvis was performed both transabdominal and transvaginal. COMPARISON: US US PELVIS TRANSVAGINAL from 12/13/[address] ABDOMEN PELVIS W from 11/22/2021 MR MR ABDOMEN WO from 11/28/2021 FINDINGS: UTERUS: Uterus nongravid and anteverted Measures 9 cm length x 7 cm AP x 6 cm wide. Again noted is the previously described large posterior myometrial fibroid which measures approximate ly 7 by 5 by 5 cm. Endometrial thickness measures 6 mm. There is no fluid in the endometrial canal. CERVIX: There are no obvious nabothian cysts. RIGHT OVARY: Measures 4.2 x 2.7 x 3.6 cm. Contains multiple sub cm follicular cysts. No significant cysts nor masses evident in the right ovary. LEFT OVARY: Measures 0.7 x 2.0 x 3.4 cm. Contains multiple sub cm follicular cysts. No significant cysts nor masses evident in the left ovary. CUL-DE-SAC: No free fluid evident. IMPRESSION: 1. Again noted is a large posterior myometrial fibroid measuring approximately 7 by 5 x 5 cm, seen on prior imaging studies. Endometrium thickness is normal and there is no fluid in the endometrial can al. 2. No abnormal ovarian findings. 3. No free fluid evident in the adnexal regions and cul-de-sac. DATA REPOSITORY:
== END 2023-01-19 02:11 ==
LOC: DI 01:51
PROVIDERS: PCP Nurse Practitioner Family; Visit Provider Obstetrics & Gynecology Gynecology
DX: D25.1 Intramural leiomyoma of uterus (principal)
CPT/HCPCS: 76830; 76856

== ENCOUNTER 2023-01-19 02:19 | Outpatient (CLI) | payer MEDICAID, SELFPAY ==
[2023-01-19 18:29] LABS: Estradiol 46 pg/mL (See Note)
[2023-01-20 18:18] LABS: Antimullerian Hormone 5.2 ng/mL (0.58-8.1)
== END 2023-01-19 02:20 | disposition home or self-care (01) ==
LOC: LBO 02:19
PROVIDERS: PCP Nurse Practitioner Family; Visit Provider Obstetrics & Gynecology Gynecology
DX: Z31.49 Encounter for other procreative investigation and testing (principal); D25.1 Intramural leiomyoma of uterus
CPT/HCPCS: 36415; 82670; 83520

== ENCOUNTER 2023-11-23 02:11 | Outpatient (CLI) | payer MEDICAID, SELFPAY ==
[2023-11-23 16:40] LABS: Panorama Kit Sent via Fed Ex
[2023-11-23 16:46] LABS: Abs Immature Grans 0.03 10^3/uL (0.0-0.06); Absolute Basophil Count 0.03 10^3/uL (0.0-0.2); Absolute Eosinophil Count 0.03 10^3/uL (0.0-0.7); Absolute Lymphocyte Count 1.76 10^3/uL (1.2-3.4); Absolute Monocyte Count 0.46 10^3/uL (0.1-0.8); Absolute Neutrophil Count 5.86 10^3/uL (1.2-6.7); Basophils % 0.4; Eosinophils % 0.4; HCT 39.7 % (36.0-46.0); Immature Grans % 0.4; Lymphocytes % 21.5; MCH 27.7 pg (27.0-33.0); MCHC 32.7 % (32.0-36.0); MCV 85 fL (80-95); Monocytes % 5.6; Neutrophils % 71.7; Platelet Count 234 10^3/uL (130-400); RDW 12.8 % (11.7-14.6); RDW-SD 39.7 fL; WBC 8.17 10^3/uL (4.4-10.8)
[2023-11-23 17:04] LABS: Glucose,1 Hr (Glucola) 74 mg/dL (80-140)
[2023-11-23 17:18] LABS: TSH (W/Ref FT4) 1.46 uIU/mL (0.36-3.74)
[2023-11-24 20:53] LABS: Hepatitis B Surface Ag Negative (Negative)
[2023-11-24 21:41] LABS: Hepatitis C Ab w Rflx HCV PCR Negative (Negative)
[2023-11-25 08:12] LABS: Varicella IgG Antibody Positive (See Note)
[2023-11-25 08:15] LABS: Rubella IgG Ab (UVM) Positive (See Note)
[2023-11-25 09:20] LABS: HIV-1/2 Ag & Ab Screen Negative (Negative)
[2023-11-26 14:03] LABS: Syphilis IgG w/Reflex Nonreactive (Nonreactive)
== END 2023-11-23 02:12 | disposition home or self-care (01) ==
LOC: LBO 02:12
PROVIDERS: PCP Nurse Practitioner Family; Visit Provider Advanced Practice Midwife
DX: Z34.91 Encounter for supervision of normal pregnancy, unspecified, first trimester
CPT/HCPCS: 36415; 82950; 86787; 86803; 86850; 86900; 86901; 87340; 87389; 84443; 85025; 86762; 86780

== ENCOUNTER 2023-11-23 15:14 | Outpatient (REF) | payer MEDICAID, SELFPAY ==
[2023-11-23 18:02] LABS: *AMPHETAMINES SCREEN URINE Negative (Negative); *BARBITURATES SCREEN URINE Negative (Negative); *BENZODIAZEPINES SCREEN URINE Negative (Negative); Cannabinoids THC Positive (Negative); Cocaine Screen,Urine Negative (Negative); METHADONE URINE SCREEN Negative (Negative); OPIATES URINE SCREEN Negative (Negative)
[2023-11-23 18:04] LABS: Tricyclic Antidepressants Negative (Negative)
[2023-11-25 14:19] LABS: Chlamydia Result Negative (Negative); GC Result Negative (Negative)
[2023-11-25 14:25] LABS: Chlamydia Result Negative (Negative); GC Result Negative (Negative)
[2023-12-02 08:19] LABS: Buprenorphine Negative ng/mL (Cutoff: 5.0); Norbuprenorphine Negative ng/mL (Cutoff: 2.5)
== END 2023-11-23 15:15 | disposition home or self-care (01) ==
LOC: LBN 15:14
PROVIDERS: PCP Nurse Practitioner Family; Visit Provider Advanced Practice Midwife
DX: Z34.91 Encounter for supervision of normal pregnancy, unspecified, first trimester
CPT/HCPCS: 80307; 80348; 87491; 87591; 87086

== ENCOUNTER → 2024-01-26 04:22 | Outpatient (CLI) | payer MEDICAID, SELFPAY ==
--- NOTE | 2024-01-26 09:00 | DI.US_ITS ---
Exam(s) US OB 2-3 TRIMESTER EXAM: US OB 2-3 TRIMESTER CLINICAL HISTORY: . TECHNIQUE: Transabdominal obstetrical ultrasound was performed. COMPARISON: US POCUS EXAM from 11/23/2023 FINDINGS: There is a single viable intrauterine gestation with cardiac activity identified-144 bpm. Amniotic fluid: There is a slightly generous amount of amniotic fluid, slightly more so than typicall y present Placental location: The placenta is anterior fundal, grade 1,with no evidence of placenta previa.Ther e appears to be a prominent fibroid in the posterior wall the lower uterine segment measuring approxi mately 7 x 6 cm. ANATOMY: A 3 vessel umbilical cord is seen. A four-chamber cardiac view was obtained. Right and left ventricular outflow tracts were imaged. There are no obvious abnormalities of the spinal column evident. There is no obvious abnormal ity of the anterior abdominal wall. stomach and urinary bladder are identified and there is no evidence of hydronephrosis. No abnormalities of the upper lip region are identified. No evidence of choroid plexus cysts i n the brain. Dating parameters place this at approximately 20 weeks and 6 days gestational age. BPD measures 20 weeks and 5 days HC measures 20 weeks and 5 days AC measures 20 weeks and 6 days FL measures 21 weeks and 0 days Estimated weight is 385 gm-0 pounds, 14 ounces. Fetus is at the 79th percentile on the Hadlock scale. IMPRESSION:: Single viable intrauterine gestation which is approximately 20 weeks and 6 days gestati onal age, implying an ALEJANDRINA of 06/08/2024. There are no obvious anomalies evident on today's study. The placenta is anterior-fundal with no evidence of placenta previa. However, there is a prominent u terine fibroid in the posterior aspect of the lower uterine segment measuring approximately 7 x 6 cm. This requires follow-up. There also appears to be slightly more than the typical amount of amnioti c fluid seen at this gestational age. DATA REPOSITORY: .
== END ==
PROVIDERS: PCP Nurse Practitioner Family; Visit Provider Advanced Practice Midwife
DX: Z34.92 Encounter for supervision of normal pregnancy, unspecified, second trimester (principal)
CPT/HCPCS: 76805

== ENCOUNTER 2024-08-03 02:23 | Outpatient (CLI) | payer MEDICAID, SELFPAY ==
--- NOTE | 2024-08-03 09:45 | DI.US_ITS ---
Exam(s) US PELVIS TRANSVAGINAL EXAM: US PELVIS TRANSVAGINAL CLINICAL HISTORY: hx of fibroid uterus,assess growth,D25.1 TECHNIQUE: Transabdominal and transvaginal imaging was performed using standard protocol. COMPARISON: US US PELVIS TRANSVAGINAL from 01/19/2023 US POCUS EXAM from 11/23/2023 US US OB 2-3 TRIMESTER from 01/26/2024 FINDINGS: UTERUS: Anteverted. 14.1 x 9.9 x 9.9 cm Endometrium: 5 mm Myometrium: Single large fibroid versus 2 adjacent fibroids are again noted in the posterior uterus. The combined measurements are 9.7 by 7.4 x 7.3 cm this compares to 8.4 x 7.0 x 5.5 cm on the prior e xam. Cervix: Unremarkable. OVARIES: Right: Cyst or mass: None. Left: Not visualized DOPPLER: Color: Symmetric and uniform flow to both ovaries. No hyperemia. CUL-DE-SAC: Free fluid: None. IMPRESSION: 1. Mild interval increase in size of posterior uterine fibroid versus 2 adjacent fibroids. 2. Unremarkable right ovary. Left ovary not visualized. DATA REPOSITORY:
== END 2024-08-03 02:43 ==
PROVIDERS: PCP Nurse Practitioner Family; Visit Provider Obstetrics & Gynecology Gynecology
DX: D25.1 Intramural leiomyoma of uterus (principal)
CPT/HCPCS: 76830; 76856